=== PATIENT | male | born 1985 | race Caucasian/White ===

== ENCOUNTER 2025-04-01 21:28 | Emergency (ER) | payer MEDICAID, SELFPAY ==
[2025-04-01 21:44] VITALS: BP 139/93; PULSE 71; RESP 16; TEMP 36.6; O2SAT 99; BMI 24.4
--- NOTE | 2025-04-01 22:38 | HMH.EDGENADL ---
Discharge Plan Disposition Patient Disposition: Home, Self-Care Referrals Follow up/Referrals: Taylor Cui APRN [Primary Care Provider, Medical] - See instructions Activity Restrictions/Add. Instructions Additional Instructions/Restrictions: You have a 2% superficial partial-thickness total body surface area burn on the volar aspect of your right forearm. No evidence of any full-thickness wagner. Please keep topical antibiotic ointment such as Neosporin on this and then you may use ice packs as needed for pain. No indication for any emergent surgical intervention or plastic surgical referral. Do not be concerned if this blisters as discussed please do not unroofed the blisters if they do unroofed it is okay just keep topical antibiotic ointment on this and to have complete resolution of her symptoms. Clinical Impressions Clinical Impression: Superficial partial thickness burn of forearm Print Language Print Language: Upper Sorbian Discharge ED Provider: Cassidy Hodges General Adult HPI General Chief complaint: Burn/Smoke Inhalation Stated complaint: A/O [id number] hot waterburn on inside of rt arm Time Seen by Provider: 04/01/25 22:30 Mode of Arrival: Ambulatory Source of Information: Patient Description of Symptoms (Recalled from ER Triage Doc. by RN): burn to right arm from hot water heater History of Present Illness HPI narrative: 39-year-old male presents today with a burn to the volar aspect of the right forearm. This happened while he was working on his hot water heater. He is here primarily for pain relief but denies the need for any pain medications. Has only been applying cool water to this. Related Data Allergies Allergy/AdvReac Type Severity Reaction Status Date / Time INGREDIENT: NO KNOWN - NO Allergy Unknown Uncoded 10/20/17 15:08 KNOWN DRUG ALLERGY [facility] Disclaimer: The information contained in this section may have been updated after the patient was seen, as this information can be updated by other users. Social History Smoking Status: Current every day smoker alcohol intake: never current occupational status: other Travel in the last 8 weeks?: None ROS Obtained: Yes All systems reviewed & no additional complaints except as documented Physical Exam General General appearance: alert and in no apparent distress Respiratory Respiratory exam: Present normal lung sounds bilaterally Cardiovascular Cardiovascular exam: Present regular rate Expanded Upper Extremity Exam Right: L/R Arms Bottom View:  1. Superficial partial-thickness burn no full-thickness wagner noted neurovascular intact Neurological Exam Neurological exam: Present alert and oriented X3 Medical Decision Making Medical Records Screening: Per USPSTF and CDC recommendations, given the prevalence of disease in our region, it is our hospital?s policy to screen for HIV and viral Hepatitis for all patients aged 18 and over and those with ongoing risk factors. Vignesh Inquiry Pt receiving controlled substance: No Vital Signs: 04/01/25 21:44 04/01/25 23:02 Temperature 97.9 F 98.9 F Temperature Source Oral Pulse Rate 70 Pulse Rate [Right Radial] 71 Respiratory Rate 16 14 Blood Pressure 134/72 Blood Pressure [Right Arm] 139/93 H Blood Pressure Mean [Right Arm] 108 Blood Pressure Source [Right Arm] Automatic Cuff Blood Pressure Position Sitting Blood Pressure Position [Right Arm] Supine 02 Sat by Pulse Oximetry 99 Oxygen Delivery Method Room Air Room Air Orders (Tests/Meds): ED MEDICATIONS Discontinued Medications Generic Name Dose Route Start Last Admin Trade Name Freq PRN Reason Stop Dose Admin Neomycin/Polymyxin/Bacitracin 5 gm 04/01/25 22:36 Nkkaaufo-Gmkdynjyw-Nhjav Oint 15gm Tube TP 05/01/25 22:35 BIDP PRN Skin Irritation Medical Decision Narrative: Patient with above history and physical. Patient requested specifically symptomatic control and we were able to place topical antibiotic ointment and ice packs on the wounds. Supportive care discussed no indication for any plastic surgery referral etc. The patient was discharged in stable condition wound care discussed. Critical Care Critical Care Time Critical Care Time: No
--- NOTE | 2025-04-01 23:01 | PC.NURSE ---
bacitracin with telfa dressing and gauze wrap placed and ice pack given prior to discharge
[2025-04-01 23:02] VITALS: BP 134/72; PULSE 70; RESP 14; TEMP 37.2; O2SAT 98
== END 2025-04-01 23:03 | disposition home or self-care (01) ==
PROVIDERS: Emergency Provider Student in an Organized Health Care Education/Training Program; PCP Nurse Practitioner
DX: T22.211A Burn of second degree of right forearm, initial encounter (principal); X19.XXXA Contact with other heat and hot substances, initial encounter
CPT/HCPCS: 99283